=== PATIENT | female | born 1955 ===

== ENCOUNTER 2022-12-26 13:31 | Outpatient (CLI) | payer MEDICARE, OTHER | END 2022-12-26 13:32 | disposition home or self-care (01) | LOC: ULT 13:31 | PROVIDERS: ATTEND Internal Medicine | DX: C95.01 Acute leukemia of unspecified cell type, in remission (principal); R22.43 Localized swelling, mass and lump, lower limb, bilateral; I08.1 Rheumatic disorders of both mitral and tricuspid valves; Z79.899 Other long term (current) drug therapy | CPT/HCPCS: 93306 ==

== ENCOUNTER 2023-02-03 11:49 | Day surgery (SDC) | payer MEDICARE, OTHER ==
[2023-02-03] MEDS ORDERED: Acetaminophen 500 MG TAB PO SCH (12:15)
[2023-02-03] MEDS ORDERED: diphenhydrAMINE 25 MG CAP PO SCH (12:15)
[2023-02-03] MEDS ORDERED: Acetaminophen 500 MG TAB ONE (14:19)
[2023-02-03 15:53] VITALS: BP 114/56; TEMP 98
== END 2023-02-03 15:13 | disposition home or self-care (01) ==
LOC: ONC/OP 11:49
PROVIDERS: ATTEND Internal Medicine
DX: D69.6 Thrombocytopenia, unspecified (principal)
CPT/HCPCS: 36430; 80053; 86850; 86900; 86901; P9035; 36415